=== PATIENT | female | born 1995 | race Caucasian/White ===

== ENCOUNTER 2016-05-14 12:57 | Emergency (ER) | payer BC ==
[2016-05-14 13:44] LABS: Hematocrit 35.8 % (37.0-47.0); Hemoglobin 10.8 gm/dL (12.5-16.0); Mean Cell Volume 88.8 fl (78-100); Mean Corpuscular Hemoglobin 26.8 pg (27-31); Mean Corpuscular Hgb Conc 30.2 g/dl (32-36); Mean Platelet Volume 11.3 fl (6.0-9.5); Platelet Count 473 K/mm3 (150-450); Red Blood Count 4.03 M/mm3 (4.2-5.4); Red Cell Distribution Width 17.2 % (11.5-14.0); White Blood Count 11.7 K/mm3 (4.0-10.5)
[2016-05-14 13:47] LABS: Total Cells Counted 100
[2016-05-14 13:56] LABS: Albumin * 2.9 gm/dl (3.4-5.0); Anion Gap 13.4 mmol/L (6.8-13.8); BUN/Creatinine Ratio 15.7 (9.0-21.6); Bilirubin, Total 0.5 mg/dL (0.0-1.1); Ca. Corrected For Albumin 9.3 mg/dL (8.4-10.2); Calcium * 8.7 mg/dL (7.9-10.9); Carbon Dioxide 26.9 mmol/L (24-32.6); Potassium 4.3 mmol/L (3.4-4.6); Total Protein 7.9 gm/dL (6.2-8.2)
[2016-05-14 14:07] LABS: Urine Bilirubin 1 mg/dl (NEGATIVE); Urine Blood 25 /ul (NEGATIVE); Urine Ketone 5 mg/dL (NEGATIVE); Urine Nitrite Negative (NEGATIVE); Urine Protein Negative (NEGATIVE); Urine Specific Gravity 1.025 SP.GR. (1.005-1.010); Urine Urobilinogen Normal (NORMAL); Urine pH 6.5 pH (5.0-7.0)
[2016-05-14] MEDS ORDERED: ONDANSETRON HCL/PF 2 MG/ML VIAL IV ONE (14:08)
[2016-05-14] MEDS ORDERED: HYDROmorphone HCL 1 MG/ML DISP.SYRIN IV ONE (14:08)
[2016-05-14] MEDS ORDERED: NORMAL SALINE 1,000 ML IV ONE (14:08)
[2016-05-14] MEDS ORDERED: PROMETHAZINE HCL 50 MG/ML AMPUL IM ONE ×2 (14:13→14:52)
[2016-05-14] MEDS ORDERED: HYDROmorphone HCL 1 MG/ML DISP.SYRIN IM ONE ×2 (14:13→16:04)
[2016-05-14 14:18] LABS: Band 3 % (0-2.0); Eosinophil 1 % (0-3); Lymphocyte 20 % (20-51); Monocyte 9 % (0-9); Neutrophil 67 % (42-75); Neutrophil # 7.8 K/mm3 (1.3-6.0)
[2016-05-14 14:20] LABS: Dohle Bodies 1+; Hypochromia 1+; Platelet Estimate Increased (NORMAL)
[2016-05-14 14:21] LABS: Urine Appearance Cloudy; Urine Color Dark Yellow
[2016-05-14 14:22] LABS: Urine Bacteria 3+; Urine Mucus Moderate - 2+; Urine RBC 0-5 /hpf (0-5); Urine WBC 0-5 /hpf (0-5)
[2016-05-14 14:27] LABS: Cocaine Ur Negative (NEGATIVE); Urine Barbiturate Negative (NEGATIVE); Urine Benzodiazepines Negative (NEGATIVE); Urine Opiates Negative (NEGATIVE); Urine PCP Negative (NEGATIVE); Urine THC Negative (NEGATIVE)
--- NOTE | 2016-05-14 14:42 | ERNOTE ---
Abdominal HPI - Narrative Date of Service: 05/14/16 - General Chief Complaint: Abdominal Pain Time Seen by Provider: 05/14/16 13:59 Source: patient, RN notes reviewed Exam Limitations: no limitations - Immun/Allergies/Home Medications Immunizatons: IMMUNIZATION HX Immunizations Up to Date Yes History of Influenza Vaccine Yes Hx Pneumococcal Vaccination Yes Allergies/Adverse Reactions: Allergies NSAIDS (Non-Steroidal Anti-Inflamma Allergy (Verified 05/14/16 13:10) Hives ibuprofen Adverse Reaction (Verified 05/14/16 13:10) Hives, vomiting ketorolac tromethamine [From Toradol] Adverse Reaction (Verified 05/14/16 13:10) Hives sumatriptan [From Imitrex] Adverse Reaction (Verified 05/14/16 13:10) Hives sumatriptan succinate [From Imitrex] Adverse Reaction (Verified 05/14/16 13:10) Hives tramadol Adverse Reaction (Verified 05/14/16 13:10) Hives vancomycin Adverse Reaction (Verified 05/14/16 13:10) Other Red jada syndrome Home Medications: HOME MEDICATIONS Albuterol Sulfate [Albuterol Sulfate Hfa] 1 puff IH Q4H PRN 05/30/13 [Last Taken 01/13/14] Ferrous Sulfate 325 mg PO BID 05/30/13 [Last Taken 07/21/14 09:00] Fluticasone Propionate [Flonase] 1 spray NS BID 05/30/13 [Last Taken 07/21/14 09 :00] Multivitamins [Multivitamin Arnie] 2 cap PO DAILY 05/30/13 [Last Taken 09:00] Albuterol Sulfate 2.5 mg IH QID PRN 06/22/13 [Last Taken 01/13/14] Gabapentin 600 mg PO TID 06/22/13 [Last Taken 07/21/14 09:00] Levetiracetam [Keppra] 1,500 mg PO BID 06/22/13 [Last Taken 07/21/14 09:00] Cholecalciferol (Vitamin D3) [Vitamin D3] 50,000 unit PO WE 08/10/13 [Last Taken 07/18/14] Dornase Delmar [Pulmozyme] 2.5 mg IH DAILY PRN 08/10/13 [Last Taken 07/21/14 09:00 ] Levothyroxine Sodium [Synthroid] 50 mcg PO DAILY 08/10/13 [Last Taken 07/21/14 09:00] Aztreonam Lysine [Cayston] 75 mg IH TID 03/01/14 [Last Taken Unknown] Colistin (Colistimethate Na) [Colistimethate] 3 ml IH BID 03/01/14 [Last Taken 07/21/14 09:00] Lipase/Protease/Amylase [Zenpep Dr 20,000 Units Capsule] 5 each PO AC 03/01/14 [ Last Taken Unknown] Lacosamide [Vimpat] 200 mg PO BID 07/21/14 [Last Taken 07/14/14 09:00] Azithromycin [Zithromax] 250 mg PO MOWEFR 07/23/14 [Last Taken Unknown] Sodium Chloride For Inhalation [Nebusal] 4 ml IH HS 07/23/14 [Last Taken Unknown ] Omeprazole [Prilosec] 40 mg PO DAILY 04/25/15 [Last Taken Unknown] Buspirone HCl 10 mg PO DAILY 02/09/16 [Last Taken Unknown] Dabigatran Etexilate Mesylate [Pradaxa] 150 mg PO BID 02/09/16 [Last Taken Unknown] Doxepin HCl [Sinequan] 10 mg PO BID 02/09/16 [Last Taken Unknown] Clonidine HCl [Clonidine HCl ER] 0.1 mg PO HS 02/24/16 [Last Taken Unknown] Bisacodyl [Dulcolax Suppository] 10 mg RC DAILY PRN #10 supp.rect 04/04/16 [ Last Taken Unknown] Zolpidem Tartrate 05/13/16 [Last Taken Unknown] Ondansetron [Zofran Odt] 8 mg PO Q8H PRN #12 tab 05/14/16 [Last Taken Unknown] - History of Present Illness Narrative: 20 y/o female brought to the ED by ambulance for abdominal pain and vomiting that began on 05/11/16. She denies any diarrhea. She was seen in the emergency department at [facility] last night. She reports being given IVF and told that she was constipated based on her xray. She was recently hospitalized at [facility] for issues r/t her cystic fibrosis. She denies any sick contacts. She reports having a fever as high as 104. She is afebrile now without any antipyretics. She reports feeling better and being able to sleep for about 2 hours after having IVF and meds last night. She reports that she began vomiting again shortly after and has continued to since. Date (Duration): 04/13/16 Prior Abdominal Problems: Present: similar symptoms Prior Treatment: Present: recently seen, treated by physician, currently on antibiotics Review of Systems - Review of Systems Constitutional: Present: recent illness, fever, chills, fatigue, malaise EYE: Present: no symptoms reported ENT: Present: no symptoms reported Respiratory: Present: cough. Absent: shortness of breath, wheezing Cardiology: Absent: palpitations, syncope Gastrointestinal/Abdominal: Present: nausea, vomiting, abdominal pain. Absent: diarrhea, constipation, eating less, drinking less Genitourinary: Absent: frequency, dysuria Musculoskeletal: Present: no symptoms reported Skin: Present: no symptoms reported Neurological: Absent: headache, dizziness/light-headedness Endocrine: Present: no symptoms reported Hematologic/Lymphatic: Present: no symptoms reported Psych: Present: no symptoms reported - Patient's Past Medical History Patient History - Medical: Anxiety, Hypothyroidism, Migraines, Seizures Patient History - Cardiac/Respiratory: Pneumonia, Other - Cystic fibrosis Patient History - Cancer: No Hx of Cancer Patient History - Surgical Procedures: Cholecystectomy, D & C, T & A, Other Patient History - Other: None LMP (females 10-50): 3 weeks - Family History Father Family History - Medical: Rheumatoid Arthritis, Other Family History - Cardiac/Respiratory: Other - Social History Living Situations: home Abuse History: No History of abuse Psych History: Psychiatric Hx Does anyone smoke in the home?: No Alcohol Use: occasionally Drug Use: none - Immunizations Immunizations Up to Date: Yes Hx Pneumococcal Vaccination: Yes History of Influenza Vaccine: Yes Physical Exam - Physical Exam General Appearance: Present: alert, mild distress, cachetic Neck: Present: normal inspection, nontender, supple Respiratory: Present: no respiratory distress, normal breath sounds, no accessory muscle use, lungs clear Cardiovascular/Chest: Present: no murmur, normal peripheral pulses, tachycardia Gastrointestinal/Abdominal: Present: normal bowel sounds, nondistended, soft, tenderness - RUQ. Absent: no organomegaly, mass Extremity Exam: Present: normal inspection, non-tender, no edema Neurological Exam: Present: alert, oriented, other - flat affect. Absent: normal mood/affect Skin Exam: Present: warm/dry, pallor ED Progress - Vital Signs Patient's Vital Signs:: I have reviewed the patient's vital signs. Vital Signs: Vital Signs 05/14/16 05/14/16 13:05 13:26 Temperature 36.9 C Pulse Rate 130 H Respiratory 17 Rate Blood Pressure 138/97 O2 Sat by Pulse 92 94 Oximetry - Progress/Reassessment Chief Complaint: Abdominal Pain Progress:: Improved Progress Note-Subjective: 05/14/16 16:13 Nausea improved after Dilaudid and Phenergan. Attempted to drink 7Up. Nausea and pain worsened. Dilaudid repeated - informed she cannot be given another dose. Zofran ODT also given. Chemistries normal despite patient reporting several days of vomiting. Bacteria present on UA but denies any urinary symptoms. Will defer antibiotic pending culture results. No vomiting noted while in department. Departure - Departure Clinical Impression: Vomiting Qualifiers: Vomiting type: unspecified Vomiting Intractability: non-intractable Nausea presence: with nausea Qualified Code(s): R11.2 - Nausea with vomiting, unspecified Abdominal pain Qualifiers: Abdominal location: right upper quadrant Qualified Code(s): R10.11 - Right upper quadrant pain Disposition: Home Follow Up Needed Condition: Stable Instructions: Viral Gastroenteritis, Adult, [id number] Prescriptions: Ondansetron [Zofran Odt] 8 mg PO Q8H PRN #12 tab PRN Reason: Nausea
[2016-05-14] MEDS ORDERED: HYDROmorphone HCL 1 MG/ML DISP.SYRIN ONE (14:52)
[2016-05-14] MEDS ORDERED: ONDANSETRON 4 MG TAB.RAPDIS PO ONE (16:04)
[2016-05-14 16:19] VITALS: BP 139/102
== END 2016-05-14 16:32 | disposition home or self-care (01) ==
LOC: ER 12:57
DX: R10.11 Right upper quadrant pain (principal); R11.2 Nausea with vomiting, unspecified
CPT/HCPCS: 36415; 80053; 81001; 82150; 83690; 84703; 85025; 87086; 96372; 99284; G0479

== ENCOUNTER 2016-05-15 09:50 | Emergency (ER) | payer BC ==
[2016-05-15] MEDS ORDERED: HYDROmorphone HCL 1 MG/ML DISP.SYRIN IV ONE (10:13)
[2016-05-15] MEDS ORDERED: DIATRIZOATE MEGLU/DIATRIZO SOD 30 ML BTL PO ONE (10:13)
[2016-05-15] MEDS ORDERED: PROMETHAZINE HCL 25 MG in DEXTROSE 5 % IN WATER 50 ML IV ONE ×4 (10:13→17:17)
--- NOTE | 2016-05-15 10:19 | ERNOTE ---
Abdominal HPI - General Chief Complaint: Chest Pain Time Seen by Provider: 05/15/16 09:53 Source: patient - Immun/Allergies/Home Medications Immunizatons: IMMUNIZATION HX Immunizations Up to Date Yes History of Influenza Vaccine Yes Hx Pneumococcal Vaccination Yes Allergies/Adverse Reactions: Allergies NSAIDS (Non-Steroidal Anti-Inflamma Allergy (Verified 05/14/16 13:10) Hives ibuprofen Adverse Reaction (Verified 05/14/16 13:10) Hives, vomiting ketorolac tromethamine [From Toradol] Adverse Reaction (Verified 05/14/16 13:10) Hives sumatriptan [From Imitrex] Adverse Reaction (Verified 05/14/16 13:10) Hives sumatriptan succinate [From Imitrex] Adverse Reaction (Verified 05/14/16 13:10) Hives tramadol Adverse Reaction (Verified 05/14/16 13:10) Hives vancomycin Adverse Reaction (Verified 05/14/16 13:10) Other Red jada syndrome Home Medications: HOME MEDICATIONS Albuterol Sulfate [Albuterol Sulfate Hfa] 1 puff IH Q4H PRN 05/30/13 [Last Taken 01/13/14] Ferrous Sulfate 325 mg PO BID 05/30/13 [Last Taken 07/21/14 09:00] Fluticasone Propionate [Flonase] 1 spray NS BID 05/30/13 [Last Taken 07/21/14 09 :00] Multivitamins [Multivitamin Arnie] 2 cap PO DAILY 05/30/13 [Last Taken 09:00] Albuterol Sulfate 2.5 mg IH QID PRN 06/22/13 [Last Taken 01/13/14] Gabapentin 600 mg PO TID 06/22/13 [Last Taken 07/21/14 09:00] Levetiracetam [Keppra] 1,500 mg PO BID 06/22/13 [Last Taken 07/21/14 09:00] Cholecalciferol (Vitamin D3) [Vitamin D3] 50,000 unit PO WE 08/10/13 [Last Taken 07/18/14] Dornase Delmar [Pulmozyme] 2.5 mg IH DAILY PRN 08/10/13 [Last Taken 07/21/14 09:00 ] Levothyroxine Sodium [Synthroid] 50 mcg PO DAILY 08/10/13 [Last Taken 07/21/14 09:00] Aztreonam Lysine [Cayston] 75 mg IH TID 03/01/14 [Last Taken Unknown] Colistin (Colistimethate Na) [Colistimethate] 3 ml IH BID 03/01/14 [Last Taken 07/21/14 09:00] Lipase/Protease/Amylase [Zenpep Dr 20,000 Units Capsule] 5 each PO AC 03/01/14 [ Last Taken Unknown] Lacosamide [Vimpat] 200 mg PO BID 07/21/14 [Last Taken 07/14/14 09:00] Azithromycin [Zithromax] 250 mg PO MOWEFR 07/23/14 [Last Taken Unknown] Sodium Chloride For Inhalation [Nebusal] 4 ml IH HS 07/23/14 [Last Taken Unknown ] Omeprazole [Prilosec] 40 mg PO DAILY 04/25/15 [Last Taken Unknown] Buspirone HCl 10 mg PO DAILY 02/09/16 [Last Taken Unknown] Dabigatran Etexilate Mesylate [Pradaxa] 150 mg PO BID 02/09/16 [Last Taken Unknown] Doxepin HCl [Sinequan] 10 mg PO BID 02/09/16 [Last Taken Unknown] Clonidine HCl [Clonidine HCl ER] 0.1 mg PO HS 02/24/16 [Last Taken Unknown] Bisacodyl [Dulcolax Suppository] 10 mg RC DAILY PRN #10 supp.rect 04/04/16 [ Last Taken Unknown] Zolpidem Tartrate 05/13/16 [Last Taken Unknown] Ondansetron [Zofran Odt] 8 mg PO Q8H PRN #12 tab 05/14/16 [Last Taken Unknown] - History of Present Illness Narrative: Patient has a history of cystic fibrosis with frequent hospital admission last in April for over two weeks at the [facility] for IV antibiotics as well as a bronchoscopy. She received dilaudid while in the hospital but not at home. She has been seen in the ER for chronic pain issues including abdominal pain, started to have abdominal pain (again) five days ago, seen in [facility] ER two days ago (diagnosis constipation), seen in our ER yesterday,given dilaudid and phenergan with brief relieve. She rates the pain as severe, has not kept anything down for days, no diarrhea Date (Duration): 05/11/16 Timing: constant, getting worse Quality: severe Modifying Factors - (Worsens): Present: coughing, movement, vomiting Prior Abdominal Problems: Present: similar symptoms Prior Treatment: Absent: recently seen, currently on antibiotics Review of Systems - Review of Systems Constitutional: Present: recent illness. Absent: fever, chills ENT: Absent: sore throat Respiratory: Present: shortness of breath - baseline, cough - baseline Cardiology: Present: chest pain Gastrointestinal/Abdominal: Present: See HPI, nausea, vomiting, abdominal pain. Absent: diarrhea Genitourinary: Present: no symptoms reported Skin: Absent: rash Neurological: Present: headache - mild - Patient's Past Medical History Patient History - Medical: Anxiety, Hypothyroidism, Migraines, Seizures Patient History - Cardiac/Respiratory: Pneumonia, Other - Cystic fibrosis Patient History - Cancer: No Hx of Cancer Patient History - Surgical Procedures: Cholecystectomy, D & C, T & A, Other Patient History - Other: None LMP (Calendar): 06/25/15 - Family History Father Family History - Medical: Rheumatoid Arthritis, Other Family History - Cardiac/Respiratory: Other - Social History Living Situations: spouse Abuse History: No History of abuse Psych History: Psychiatric Hx Does anyone smoke in the home?: No Alcohol Use: occasionally Drug Use: none - Immunizations Immunizations Up to Date: Yes Hx Pneumococcal Vaccination: Yes History of Influenza Vaccine: Yes Physical Exam - Physical Exam General Appearance: Present: wd/wn, alert, mild distress Ears, Nose, Throat: Present: normal pharynx Respiratory: Present: no respiratory distress, normal breath sounds, lungs clear Cardiovascular/Chest: Present: no murmur, tachycardia Gastrointestinal/Abdominal: Present: normal bowel sounds, nondistended, soft, tenderness - mainly on right side of abdomen, Obturator sign, Psoas sign Extremity Exam: Present: no edema Neurological Exam: Present: alert, oriented, normal mood/affect Skin Exam: Present: normal color, warm/dry ED Progress - Results and Orders Patient's Lab Results:: I have reviewed the patient's lab results. - Vital Signs Patient's Vital Signs:: I have reviewed the patient's vital signs. Vital Signs: Vital Signs 05/15/16 09:54 Temperature 36.5 C Pulse Rate 116 H Respiratory 14 Rate Blood Pressure 148/101 O2 Sat by Pulse 93 Oximetry - CT/Ultrasound CT/Ultrasound Narrative: CT abdomen /pelvis: moderate amount of stool in right colon, no acute findings, normal appendix - Progress/Reassessment Chief Complaint: Chest Pain Progress Note-Subjective: 05/15/16 11:55 tolerating po contrast, requesting more pain medication 05/15/16 14:[address] results, patient is requesting more pain medication no vomiting here, finished po contrast without problems 05/15/16 14:27 call to [facility] 05/15/16 14:37 discussed with Dean Hernández (cystic fibrosis services), right sided constipation typical for CF, discussed slightly elevated WBC and bands bed will be available shortly, will call with transfer time, accepting doctor Dr Dubose no more dilaudid! explained plan to patient, is requesting more phenergan or benadryl, discussed appropriate dosing interval Departure - Departure Clinical Impression: Constipation by delayed colonic transit Abdominal pain Qualifiers: Abdominal location: unspecified location Qualified Code(s): R10.9 - Unspecified abdominal pain Chronic pain Qualifiers: Chronic pain type: other chronic pain Qualified Code(s): G89.29 - Other chronic pain Disposition: [facility] Condition: Fair
[2016-05-15 10:36] LABS: Hematocrit 32.8 % (37.0-47.0); Hemoglobin 10.1 gm/dL (12.5-16.0); Mean Corpuscular Hemoglobin 26.8 pg (27-31); Mean Corpuscular Hgb Conc 30.8 g/dl (32-36); Mean Platelet Volume 9.8 fl (6.0-9.5); Platelet Count 760 K/mm3 (150-450); Red Blood Count 3.77 M/mm3 (4.2-5.4); Red Cell Distribution Width 16.8 % (11.5-14.0); White Blood Count 12.1 K/mm3 (4.0-10.5)
[2016-05-15] MEDS ORDERED: HYDROmorphone HCL 1 MG/ML DISP.SYRIN IM ONE (10:36)
[2016-05-15] MEDS ORDERED: PROMETHAZINE HCL 50 MG/ML AMPUL IM ONE ×2 (10:37→10:38)
[2016-05-15 10:38] LABS: Total Cells Counted 100
[2016-05-15] MEDS ORDERED: HYDROmorphone HCL 1 MG/ML DISP.SYRIN ONE ×2 (10:38→11:55)
[2016-05-15] MEDS ORDERED: DIATRIZOATE MEGLU/DIATRIZO SOD 30 ML BTL ONE (10:48)
[2016-05-15 10:51] LABS: Atypical (Reactive) Lymph 1 % (0-2); Band 7 % (0-2.0); Eosinophil 3 % (0-3); Lymphocyte 19 % (20-51); Monocyte 7 % (0-9); Neutrophil 63 % (42-75); Neutrophil # 7.6 K/mm3 (1.3-6.0); Platelet Estimate Increased (NORMAL)
[2016-05-15 10:53] LABS: Toxic Granulation 2+
[2016-05-15 10:57] LABS: Giant Platelets Trace; Hypochromia 1+
[2016-05-15] MEDS ORDERED: diphenhydrAMINE HCL 50 MG/ML VIAL IV ONE (12:37)
[2016-05-15] MEDS ORDERED: diphenhydrAMINE HCL 50 MG/ML VIAL ONE (13:06)
[2016-05-15] MEDS ORDERED: NORMAL SALINE 1,000 ML IV ONE (15:48)
[2016-05-15 16:42] VITALS: BP 117/76
== END 2016-05-15 18:03 | disposition short-term general hospital (02) ==
LOC: ER 09:50
DX: K59.01 Slow transit constipation (principal); G89.29 Other chronic pain; E84.9 Cystic fibrosis, unspecified

== ENCOUNTER 2016-05-29 03:13 | Emergency (ER) | payer BC ==
[2016-05-29] MEDS: ONDANSETRON 4 MG TAB.RAPDIS PO ONE (03:47)
[2016-05-29] MEDS ORDERED: ONDANSETRON 4 MG TAB.RAPDIS ONE (03:47)
[2016-05-29] MEDS ORDERED: PROMETHAZINE HCL 25 MG/ML AMPUL ONE (04:00)
[2016-05-29] MEDS: PROMETHAZINE HCL 25 MG/ML AMPUL IM ONE (04:03)
--- NOTE | 2016-05-29 04:07 | ERNOTE ---
Dyspnea - General Presenting Symptoms: shortness of breath Time Seen by Provider: 05/29/16 03:30 Source: patient Exam Limitations: no limitations - Immun/Allergies/Home Medications Immunizations: IMMUNIZATION HX Immunizations Up to Date Yes History of Influenza Vaccine Yes Hx Pneumococcal Vaccination Yes Allergies/Adverse Reactions: Allergies NSAIDS (Non-Steroidal Anti-Inflamma Allergy (Verified 05/14/16 13:10) Hives ibuprofen Adverse Reaction (Verified 05/14/16 13:10) Hives, vomiting ketorolac tromethamine [From Toradol] Adverse Reaction (Verified 05/14/16 13:10) Hives sumatriptan [From Imitrex] Adverse Reaction (Verified 05/14/16 13:10) Hives sumatriptan succinate [From Imitrex] Adverse Reaction (Verified 05/14/16 13:10) Hives tramadol Adverse Reaction (Verified 05/14/16 13:10) Hives vancomycin Adverse Reaction (Verified 05/14/16 13:10) Other Red jada syndrome Home Medications: HOME MEDICATIONS Albuterol Sulfate [Albuterol Sulfate Hfa] 1 puff IH Q4H PRN 05/30/13 [Last Taken 01/13/14] Ferrous Sulfate 325 mg PO BID 05/30/13 [Last Taken 07/21/14 09:00] Fluticasone Propionate [Flonase] 1 spray NS BID 05/30/13 [Last Taken 07/21/14 09 :00] Multivitamins [Multivitamin Anrie] 2 cap PO DAILY 05/30/13 [Last Taken 09:00] Albuterol Sulfate 2.5 mg IH QID PRN 06/22/13 [Last Taken 01/13/14] Gabapentin 600 mg PO TID 06/22/13 [Last Taken 07/21/14 09:00] Levetiracetam [Keppra] 1,500 mg PO BID 06/22/13 [Last Taken 07/21/14 09:00] Cholecalciferol (Vitamin D3) [Vitamin D3] 50,000 unit PO WE 08/10/13 [Last Taken 07/18/14] Dornase Demlar [Pulmozyme] 2.5 mg IH DAILY PRN 08/10/13 [Last Taken 07/21/14 09:00 ] Levothyroxine Sodium [Synthroid] 50 mcg PO DAILY 08/10/13 [Last Taken 07/21/14 09:00] Aztreonam Lysine [Cayston] 75 mg IH TID 03/01/14 [Last Taken Unknown] Colistin (Colistimethate Na) [Colistimethate] 3 ml IH BID 03/01/14 [Last Taken 07/21/14 09:00] Lipase/Protease/Amylase [Zenpep Dr 20,000 Units Capsule] 5 each PO AC 03/01/14 [ Last Taken Unknown] Lacosamide [Vimpat] 200 mg PO BID 07/21/14 [Last Taken 07/14/14 09:00] Azithromycin [Zithromax] 250 mg PO MOWEFR 07/23/14 [Last Taken Unknown] Sodium Chloride For Inhalation [Nebusal] 4 ml IH HS 07/23/14 [Last Taken Unknown ] Omeprazole [Prilosec] 40 mg PO DAILY 04/25/15 [Last Taken Unknown] Buspirone HCl 10 mg PO DAILY 02/09/16 [Last Taken Unknown] Dabigatran Etexilate Mesylate [Pradaxa] 150 mg PO BID 02/09/16 [Last Taken Unknown] Doxepin HCl [Sinequan] 10 mg PO BID 02/09/16 [Last Taken Unknown] Clonidine HCl [Clonidine HCl ER] 0.1 mg PO HS 02/24/16 [Last Taken Unknown] Bisacodyl [Dulcolax Suppository] 10 mg RC DAILY PRN #10 supp.rect 04/04/16 [ Last Taken Unknown] Zolpidem Tartrate 05/13/16 [Last Taken Unknown] Ondansetron [Zofran Odt] 8 mg PO Q8H PRN #12 tab 05/14/16 [Last Taken Unknown] - History of Present Illness Narrative: Pt has people staying with her and got upset this morning and became short of breath. Her called EMS and she told them to bring her here instead of the closest facility. Severity: moderate Initiating event: Reports: exposure to smoke - and stressful situation Frequency of episodes: Reports: frequent episodes Modifying Factors (Worsens): Reports: activity Associated Symptoms-Dyspnea: Reports: chest pain/discomfort, cough Prior Treatment: Reports: recently seen, recently hospitalized - at the [facility], states she didn't feel as good going home this time as she usually does, currently on antibiotics - prophylactic azithromycin Review of Systems - Review of Systems Constitutional: Present: See HPI EYE: Present: no symptoms reported ENT: Present: no symptoms reported Respiratory: Present: shortness of breath, cough Cardiology: Present: chest pain Gastrointestinal/Abdominal: Present: nausea, vomiting Genitourinary: Present: no symptoms reported Musculoskeletal: Present: no symptoms reported Skin: Present: no symptoms reported Neurological: Present: no symptoms reported Endocrine: Present: no symptoms reported Hematologic/Lymphatic: Present: no symptoms reported Psych: Present: no symptoms reported - Patient's Past Medical History Patient History - Medical: Anxiety, Hypothyroidism, Migraines, Seizures Patient History - Cardiac/Respiratory: Pneumonia, Other - cystic fibrosis Patient History - Cancer: No Hx of Cancer Patient History - Surgical Procedures: Cholecystectomy, D & C, T & A, Other Patient History - Other: None LMP (females 10-50): 3 weeks LMP (Calendar): 06/25/15 - Family History Father Family History - Medical: Rheumatoid Arthritis, Other Family History - Cardiac/Respiratory: Other - Social History Living Situations: home Abuse History: No History of abuse Psych History: Psychiatric Hx Does anyone smoke in the home?: No Smoking Status: Never smoker Alcohol Use: occasionally Drug Use: none - Immunizations Immunizations Up to Date: Yes Hx Pneumococcal Vaccination: Yes History of Influenza Vaccine: Yes Physical Exam - Physical Exam General Appearance: Present: wd/wn, alert, no apparent distress Eye Exam: Normal inspection: bilateral Ears, Nose, Throat: Present: normal ENT inspection, hearing grossly normal Neck: Present: normal inspection, nontender Respiratory: Present: no respiratory distress, normal breath sounds, no accessory muscle use, chest nontender, lungs clear Cardiovascular/Chest: Present: no murmur, normal peripheral pulses, tachycardia Gastrointestinal/Abdominal: Present: normal bowel sounds Back Exam: Present: normal inspection, normal range of motion Extremity Exam: Present: normal inspection, no edema Neurological Exam: Present: alert, oriented, normal mood/affect, no motor/ sensory deficits Skin Exam: Present: normal color, warm/dry Lymphatic Exam: Present: no adenopathy ED Progress - Results and Orders Patient's Lab Results:: I have reviewed the patient's lab results. Results and Orders: Laboratory Tests 05/29/16 05/29/16 04:05 04:05 WBC 10.1 Hgb 9.8 L Hct 31.2 L Plt Count 424 Sodium 143 H Potassium 4.4 Chloride 105 Carbon Dioxide 28.3 Anion Gap 14.1 H BUN 12 Creatinine 0.84 Est GFR (Non-Af Amer) 90 Random Glucose 114 H Calcium 9.6 Total Bilirubin 1.0 AST 76 H ALT 89 H Alkaline Phosphatase 220 H Total Protein 7.6 Albumin 2.6 L - Vital Signs Patient's Vital Signs:: I have reviewed the patient's vital signs. Vital Signs: Vital Signs 05/29/16 05/29/16 03:15 03:35 Temperature 35.9 C L Pulse Rate 118 H 112 H Respiratory 22 H Rate Blood Pressure 125/97 O2 Sat by Pulse 98 Oximetry - EKG EKG read: Interp. by me EKG Comments: Normal Sinus Rhythm - Progress/Reassessment Chief Complaint: Dyspnea Progress:: Unchanged Progress Note-Subjective: 05/29/16 04:36 Pt states she his having pain pointing to the middle of her chest. I explained that her symptoms suggest anxiety and I would treat that but that with her vomiting twice since she arrived I would not add to her nausea by adding narcotic pain medications. She suggested I call [facility] ([facility]) to ask what they usually do with her. I explained I do not see any respiratory signs and that her SaO2 has been perfect since she arrived, her lungs are completely clear to auscultation so I cannot see why I would call the [facility]. She continued to argue in different ways why I should give her IV Dilaudid. I told her I would simply treat by what I see as the diagnosis. Pt states she will just call her doctor at the [facility] in the morning. Departure Clinical Impression: Anxiety - Departure Disposition: Home Follow Up Needed Condition: Good Instructions: Panic Attacks, [id number] Additional Instructions: Avoid stressful situations. Talk to your regular doctor about having an anxiety medication to use as needed in these kind of situations.
[2016-05-29 04:15] LABS: Hematocrit 31.2 % (37.0-47.0); Hemoglobin 9.8 gm/dL (12.5-16.0); Mean Cell Volume 85.2 fl (78-100); Mean Corpuscular Hemoglobin 26.8 pg (27-31); Mean Corpuscular Hgb Conc 31.4 g/dl (32-36); Mean Platelet Volume 10.4 fl (6.0-9.5); Neutrophil # 6.7 K/mm3 (1.3-6.0); Neutrophil % 66.8 % (42-75.0); Platelet Count 424 K/mm3 (150-450); Red Blood Count 3.66 M/mm3 (4.2-5.4); White Blood Count 10.1 K/mm3 (4.0-10.5)
[2016-05-29 04:29] LABS: Albumin * 2.6 gm/dl (3.4-5.0); Anion Gap 14.1 mmol/L (6.8-13.8); BUN/Creatinine Ratio 14.3 (9.0-21.6); Ca. Corrected For Albumin 10.4 mg/dL (8.4-10.2); Calcium * 9.6 mg/dL (7.9-10.9); Carbon Dioxide 28.3 mmol/L (24-32.6); Potassium 4.4 mmol/L (3.4-4.6); Total Protein 7.6 gm/dL (6.2-8.2)
[2016-05-29] MEDS ORDERED: LORazepam 2 MG/ML DISP.SYRIN ONE (04:48)
[2016-05-29] MEDS: LORazepam 2 MG/ML DISP.SYRIN IM ONE (04:52)
--- OUTSIDE RECORDS SUMMARY | 2016-05-29 05:27 | XMS REPORT | Continuity of Care Document ---
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 individual orders. RESPIRATORY CULTURE (05/18/2016 12:43 AM)Only the most recent of2 resultswithin the time period is included. Component Value Range Respiratory Culture Many Staphylococcus aureus(A)Comment: D zone test for inducible clindamycin resistance was performed (Positive). Oxacillin-resistant staphylococci are resistant to all currently available B- lactam antibiotics with the exception of newer cephalosporins with anti-MRSA activity. Rifampin should not be used alone for antimicrobial therapy Respiratory Culture Rare Achromobacter xylosoxidans(A)Comment: Respiratory Culture Many Staphylococcus aureus #2(A)Comment: D zone test for inducible clindamycin resistance was performed (Positive). Oxacillin-resistant staphylococci are resistant to all currently available B- lactam antibiotics with the exception of newer cephalosporins with anti-MRSA activity. Rifampin should not be used alone for antimicrobial therapy Respiratory Culture Rare Naila glabrata(A) Specimen Culture - Sputum, chronic lung patient Narrative Identification performed by MALDI-TOF mass spectrometry (MS).The performance characteristics of MALDI-TOF MS were determined by the [facility].It has not been cleared orApproved by the FDA. The FDA has determined that such clearance or approval is not necessary.This test is for clinical purposes. It should not be regarded as investigational or for research.The laboratory is certified under the Clinical Laboratory Improvement Amendments of 1988 (CLIA) as qualified to perform high complexity clinical laboratory testing. Organism Antibiotic Method Susceptibility Staphylococcus aureus CLINDAMYCIN Resistant Staphylococcus aureus DOXYCYCLINE 1: Susceptible Staphylococcus aureus ERYTHROMYCIN >=8: Resistant Staphylococcus aureus GENTAMICIN <=0.5: Susceptible Staphylococcus aureus LINEZOLID 2: Susceptible Staphylococcus aureus OXACILLIN >=4: Resistant Staphylococcus aureus RIFAMPIN <=0.5: Susceptible Staphylococcus aureus TETRACYCLINE <=1: Susceptible Staphylococcus aureus TRIMETHOPRIM/SULFA <=0.5: Susceptible Staphylococcus aureus VANCOMYCIN 1: Susceptible Achromobacter xylosoxidans AMIKACIN 64: Resistant Achromobacter xylosoxidans AZTREONAM >32: Resistant Achromobacter xylosoxidans CEFEPIME 8: Susceptible Achromobacter xylosoxidans CEFTAZIDIME 4: Susceptible Achromobacter xylosoxidans CIPROFLOXACIN 1: Susceptible Achromobacter xylosoxidans GENTAMICIN >16: Resistant Achromobacter xylosoxidans MEROPENEM <=1: Susceptible Achromobacter xylosoxidans PIPERACILLIN/TAZOBACTAM <=16: Susceptible Achromobacter xylosoxidans TOBRAMYCIN >8: Resistant Achromobacter xylosoxidans TRIMETHOPRIM/SULFA <=0.5: Susceptible Staphylococcus aureus #2 CLINDAMYCIN Resistant Staphylococcus aureus #2 DOXYCYCLINE 1: Susceptible Staphylococcus aureus #2 ERYTHROMYCIN >=8: Resistant Staphylococcus aureus #2 GENTAMICIN <=0.5: Susceptible Staphylococcus aureus #2 LINEZOLID 2: Susceptible Staphylococcus aureus #2 OXACILLIN >=4: Resistant Staphylococcus aureus #2 RIFAMPIN <=0.5: Susceptible Staphylococcus aureus #2 TETRACYCLINE <=1: Susceptible Staphylococcus aureus #2 TRIMETHOPRIM/SULFA <=0.5: Susceptible Staphylococcus aureus #2 VANCOMYCIN <=0.5: Susceptible RESPIRATORY VIRUS PCR (05/16/2016 2:18 AM)Only the most recent of2 resultswithin the time period is included. Component Value Range Adenovirus Not Detected Not Detected Human [place]-Pneumovirus Not Detected Not Detected Influenza A Not Detected Not Detected Influenza B Not Detected Not detected H1N1 Influenza Not Detected Not Detected Parainfluenza 1 Virus Not Detected Not Detected Parainfluenza 2 Virus Not Detected Not Detected Parainfluenza 3 Virus Not Detected Not detected RSV A Not Detected Not Detected RSV B Not Detected Not Detected Specimen Other - Nasopharyngeal swab Narrative Test Methodology:PCR amplification The performance characteristics of this test were determined by the [facility].It has not been cleared or approved by the U.S. Food and DrugAdministration (FDA). The FDA has determined that such clearance or approval is not necessary.This test is for clinical purposes.It should not be regarded as investigational or for research. The laboratory is certified under the Clinical Laboratory Improvement Amendments of 1988 (CLIA) as qualified to perform high complexity clinical laboratory testing. BLOOD CELL MORPHOLOGY (05/16/2016 2:17 AM) Component Value Range Polychromasia 1+ Basophilic Stippling Present Toxic Granulation Present Vacuolated Neutrophils Present Large Platelet Present Specimen Whole Blood VENOUS BLOOD GAS (CRITICAL CARE LABORATORY) (05/16/2016 2:17 AM)Only the most recent of3 resultswithin the time period is included. Component Value Range pH, Venous 7.41 7.33-7.43 pCO2, Venous 46 37-50 torr pO2, Venous 36(L) 37-47 torr Base Excess, Venous 5(H) -2-2 mEq/L Bicarbonate, Venous 29(H) 22-26 mEq/L Total CO2, Venous 31 24-32 mEq/L Temperature, Venous 37.0 Degrees C Specimen Blood PT/INR (PROTHROMBIN TIME/INR) VENOUS (05/16/2016 2:17 AM)Only the most recent of2 resultswithin the time period is included. Component Value Range PT (Prothrombin Time) 15(H) 9-12 secs INR 1.5 <4.0 Specimen Blood LACTIC ACID, WHOLE BLOOD (CRITICAL CARE LABORATORY) (05/16/2016 2:17 AM) Component Value Range Lactic Acid, Whole Blood 1.0Comment: 0.5-2.0 mEq/L Glycolate, the principle toxic metabolite of ethylene glycol, can cause artifactual elevation of measured lactate. Specimen Blood COMPREHENSIVE METABOLIC PANEL (CMP) (05/16/2016 2:17 AM)Only the most recent of2 resultswithin the time period is included. Component Value Range Sodium 140 135-145 mEq/L Potassium 3.2(L) 3.5-5.0 mEq/L Chloride 102 95-107 mEq/L CO2 25 22-29 mEq/L Anion Gap 13 8-18 mEq/L BUN 9(L) 10-20 mg/dL Creatinine 0.6Comment: 0.5-1.0 mg/dL Creatinine switched to enzymatic method on 08/19/2010.GFR equation switched to IDMS-traceable MDRD equation on 08/19/2010. Calculated GFR values are not valid in clinical settings where serum creatinine is changing. Glucose 150(H)Comment: 65-99 mg/dL The Expert Committee on the Diagnosis and Classification of Diabetes has defined impaired fasting glucose as greater than or equal to 100 mg/dL but less than 126 mg/dL.(Diabetes Care 28 (Suppl 1)S41,2005) Calcium 7.8(L) 8.5-10.5 mg/dL Total Protein 6.2 6.0-8.0 g/dL Albumin 2.6(L) 3.4-4.8 g/dL AST 38(H)Comment: 0-32 U/L Adult reference ranges updated on 03/07/13 at 830am ALP 142(H) 35-104 U/L Bilirubin Total 0.5 <=1.2 mg/dL ALT 23Comment: 0-33 U/L The upper limit of normal for alanine aminotransferase (ALT) reference ranges for adults is controversial with some authorities recommending limit as low as 30 U/L for males and 19 U/L for females. Th ere is increased incidence of subclinical liver disease (e.g., early steatohepatitis) in patients with ALT values in the range of 31-41 U/L for males and 20-33 U/L for females. ALT values should alway s be interpreted in conjunction with clinical history, physical examination findings, and, if applicable, data from other diagnostic tests. Calculated GFR >90 >60 mL/min/1.73 m2 Specimen Blood ECG - EKG 12 LEAD (05/15/2016 9:09 PM)Only the most recent of2 resultswithin the time period is included. Component Value Range ECG SEVERITY - OTHERWISE NORMAL ECG - VENT. RATE 116 bpm RR 517 ms P-R INTERVAL 120 ms QRSD INTERVAL 70 ms QT INTERVAL 316 ms QTC INTERVAL 439 ms P AXIS 56 degrees QRS AXIS 80 degrees T WAVE AXIS 24 degrees REPORT SINUS TACHYCARDIA Interpreting Physician: Pavel Staley MD VITAMIN A (05/01/2016 6:53 AM) Component Value Range Vitamin A (Retinol) 0.31 0.30-1.20 mg/L Vitamin A (Retinyl Palmitate) <0.02 0.00-0.10 mg/L Vitamin A Interpretation NormalComment: Test developed and characteristics determined by [facility]. See Compliance Statement B: [facility] Performed by [facility], [address] [place] [id number] [email or web address], Juliano Odell MD, Lab. Director Specimen Blood Narrative Source: BLOOD Client Accession number: [id number] FOLATE (05/01/2016 6:53 AM) Component Value Range Folate >20.0 >=4.1 ng/mL Specimen Blood Narrative Normal>4.1ng/mL Indeterminant 2.2 - 4.1 ng/mL Deficient <2.2ng/mL All enriched grains have been fortified with folic acid in the [place] since 1997 and therefore the prevalence of folate deficiency is low (1%). Testing for folate deficiency is strongly discouraged unless profound malnutrition is suspected and other causes of anemia have been excluded. VITAMIN E, SERUM (05/01/2016 6:53 AM) Component Value Range Vitamin E (Alpha-Tocopherol) 8.7Comment: 5.5-18.0 mg/L Test developed and characteristics determined by [facility]. See Compliance Statement B: [facility] Vitamin E (Gamma-Tocopherol) 1.7Comment: 0.0-6.0 mg/L Performed by [facility], [address] [place] [id number] [email or web address], Juliano Odell MD, Lab. Director Specimen Blood Narrative Source: BLOOD Client Accession number: [id number] VITAMIN D, 25-HYDROXY (05/01/2016 6:53 AM) Component Value Range Vitamin D, 25-OH 20Comment: 20-80 ng/mL This assay accurately quantifies the sum of 25-hydroxyvitamin D3 and 25- hydroxyvitamin D2. Endocrine Society, [place] of Medicine (IOM), and World Health Organization (WHO) guidelines designate 25-h ydroxyvitamin D plasma concentrations below 20 ng/mL as deficient, based on increased frequency of adverse outcomes (e.g., osteoporotic fractures). 25-Hydroxyvitamin D reference ranges are a controversial topic, with some authorities suggesting optimal concentrations should be 30 ng/mL or higher based on correlations of 25-hydroxyvitamin D plasma concentrations with physiological parameters such as parathyroid hormone or calcium concentrations. However, optimal 25-hydroxyvitamin D concentrations greater than 20 ng/mL may be considered for specific disease conditions. Vitamin D toxicity is uncommon but may be seen at 25-hydroxyvitamin D concentrations greater than 150 ng/mL. Specimen Blood MAGNESIUM (05/01/2016 6:53 AM) Component Value Range Magnesium 1.6 1.5-2.9 mg/dL Specimen Blood PLATELET COUNT (05/01/2016 6:53 AM)Only the most recent of4 resultswithin the time period is included. Component Value Range Platelet Count 126(L) 150-400 K/MM3 Specimen Whole Blood POTASSIUM (04/30/2016 5:01 AM)Only the most recent of2 resultswithin the time period is included. Component Value Range Potassium 4.8 3.5-5.0 mEq/L Specimen Blood WHITE BLOOD CELL (WBC) COUNT (04/30/2016 5:01 AM)Only the most recent of2 resultswithin the time period is included. Component Value Range WBC Count 6.9 3.7-10.5 K/MM3 Nucleated RBC 0 /[address] Blood [address] CHEST WO CONTRAST ([id number]) (04/25/2016 4:44 AM) Impressions Impression: 1. Patchy areas of consolidation in the bilateral lungs appear somewhat improved compared to 01/07/2016. Again remains concerning for infection in the setting of cystic fibrosis. 2. Grossly stable mediastinal adenopathy 3. Stable changes of cystic fibrosis. 4. Fatty infiltration of the liver. This final report is in agreement with the critical and emergent preliminary findings reported by the ceo and president healthcare risk control consultant. Narrative Procedure: CT CHEST WO CONTRAST ([id number]) Clinical Indication:Cystic fibrosis Technique: Chest CT without intravenous contrast. Comparison: CT chest 01/07/2016 Findings: Supraclavicular, axillary, mediastinal, hilar: Prominent number of mediastinal nodes. With level 2 node measuring 1 cm, level 4R node measuring 11 mm and the other prominent mediastinal nodes that are difficult to measure on this noncontrast exam. Size and number of mediastinal nodes is similar to 01/07/2016. Cardiovascular: Cardiac size is normal. No pericardial effusions. No coronary artery calcifications. Abdomen: Fatty infiltration of liver. Pancreas is fatty replaced. Left greater than right bilateral nonobstructing renal stones are demonstrated. Lungs, airways, pleura: Stable central bronchiectasis with areas of mucous plugging and air trapping. The right upper lobe again demonstrates areas of abnormally peribronchial consolidation with surrounding groundglass opacities. Which are overall similar compared to the prior exam. Nodular opacities in the superior segment of the left lower lobe are decreased in prominence compared to the prior exam. Peribronchial consolidations and groundglass opacities in the left upper lobe are grossly stable. Chest wall, musculoskeletal: Unremarkable. Lines and tubes: Right-sided Uiirez-s-Layl in stable position. Procedure Note Azeem, Incoming Imaging Results - Sat Apr 25, 2016 10:21 AM EXPRESS CLERK Procedure: CT CHEST WO CONTRAST ([id number]) Clinical Indication: Cystic fibrosis Technique: Chest CT without intravenous contrast. Comparison: CT chest 01/07/2016 Findings: Supraclavicular, axillary, mediastinal, hilar: Prominent number of mediastinal nodes. With level 2 node measuring 1 cm, level 4R node measuring 11 mm and the other prominent mediastinal nodes that are difficult to measure on this noncontrast exam. Size and number of mediastinal nodes is similar to 01/07/2016. Cardiovascular: Cardiac size is normal. No pericardial effusions. No coronary artery calcifications. Abdomen: Fatty infiltration of liver. Pancreas is fatty replaced. Left greater than right bilateral nonobstructing renal stones are demonstrated. Lungs, airways, pleura: Stable central bronchiectasis with areas of mucous plugging and air trapping. The right upper lobe again demonstrates areas of abnormally peribronchial consolidation with surrounding groundglass opacities. Which are overall similar compared to the prior exam. Nodular opacities in the superior segment of the left lower lobe are decreased in prominence compared to the prior exam. Peribronchial consolidations and groundglass opacities in the left upper lobe are grossly stable. Chest wall, musculoskeletal: Unremarkable. Lines and tubes: Right-sided Zrzkxz-g-Parz in stable position. IMPRESSION Impression: 1. Patchy areas of consolidation in the bilateral lungs appear somewhat improved compared to 01/07/2016. Again remains concerning for infection in the setting of cystic fibrosis. 2. Grossly stable mediastinal adenopathy 3. Stable changes of cystic fibrosis. 4. Fatty infiltration of the liver. This final report is in agreement with the critical and emergent preliminary findings reported by the ceo and president healthcare risk control consultant. CHEST- PA& LATERAL (04/23/2016 4:53 PM)Only the most recent of3 resultswithin the time period is included. Impressions Impression: 1. Interval decreased left upper lobe infiltrate. 2. Slightly increased consolidation in right upper lobe with associated volume loss, suggesting a combination of infiltrate and atelectasis. 3. No new consolidation or mucous plugging. Narrative Procedure: CHEST- PA & LATERAL Clinical Indication: Cystic fibrosis, right upper lobe collapse. Technique: PA and lateral chest radiograph Comparison: 04/14/2016 Findings: Redemonstration of airspace opacity in the left upper lobe which most likely represents combination of bronchiectasis and peribronchial infiltrate, improved since prior exam. Right upper lobe consolidation is again seen slightly increased since prior exam with old up right hilum suggesting volume loss. Both lower lungs are clear. No pleural effusion or pneumothorax. Heart size and pulmonary vasculature are unremarkable. Right-sided Reucjx-i-Ncll is in stable position with its tip at the cavoatrial junction. Procedure Note Azeem, Incoming Imaging Results - Radha Apr 23, 2016 6:06 PM EXPRESS CLERK Procedure: CHEST- PA & LATERAL Clinical Indication: Cystic fibrosis, right upper lobe collapse. Technique: PA and lateral chest radiograph Comparison: 04/14/2016 Findings: Redemonstration of airspace opacity in the left upper lobe which most likely represents combination of bronchiectasis and peribronchial infiltrate, improved since prior exam. Right upper lobe consolidation is again seen slightly increased since prior exam with old up right hilum suggesting volume loss. Both lower lungs are clear. No pleural effusion or pneumothorax. Heart size and pulmonary vasculature are unremarkable. Right-sided Ovukqc-k-Tvhh is in stable position with its tip at the cavoatrial junction. IMPRESSION Impression: 1. Interval decreased left upper lobe infiltrate. 2. Slightly increased consolidation in right upper lobe with associated volume loss, suggesting a combination of infiltrate and atelectasis. 3. No new consolidation or mucous plugging. THYROID STIMULATING HORMONE (04/23/2016 5:11 AM) Component Value Range TSH 2.34 0.27-4.20 IU/mL Specimen Blood BRONCHOSCOPY LAB PROCEDURE (04/22/2016 10:33 AM) William Avila MD 04/22/2016 10:33 AM Bronchoscopy Procedure Note Procedure Date: 04/22/2016 Procedure:Flexible bronchoscopy Location:Bronch Lab B Pre-Operative Diagnosis:Cystic fibrosis exacerbation Indications:Obtain respiratory cultures, instill Yung Attending/Staff: William Reno Fellow:Sharif Subramanian Assistants:Edinson Grady RRT and Kemal Bravo RRT Consent:The risks, benefits, indications, potential complications and alternatives were explained to the patient and informed consent obtained on 04/22/16 Anesthesia:Topical anesthesia with lidocaine:400 mg, Versed 4 mg iv and Fentanyl 150 mcg iv Other Medications/fluids:Normal Saline 500 cc, Dornase 5 mg Description of Procedure: After obtaining consent for bronchoscopy, the iv on the left hand was acccessed. The patient was taken from the bronchoscopy prep area to Bronch Suite B.Procedural timeout was performed with confirmation of patient identity and procedure to be performed. Hemodynamic monitoring and continuous pulse oximetry was initiated. Topical anesthesia of the nasopharynx was performed. The patient was then placed supine on the table and supplemental oxygen was provided.After initiation of conscious sedation the Olympus P180 was passed transorally.The posterior pharynx was examined and was normal.The true vocal cords appeared normal and moved normally.The trachea was midline and was normal. The main juvenal was sharp.The right mainstem bronchus was normal. RB1-10 were normal.Left mainstem bronchus was normal.LB 1-10 were normal. There were copious secretions which were thick, white and purulent mostly emanating from the RUL.The mucosa was friable. - Following the airway examination, we obtained a BAL from the RB 1 segment with instillation of 60 cc X 2, with return of nearly 30 cc of thick, purulent secretions. Following the BAL, we instilled 5 mg of Dornase into the right upper lobe apical segment following which there was return of bloody secretions which were suctioned out. No active re-pooling was noted after suctioning Procedures Performed: Bronchoalveolar Lavage:RB1 - 2 x 60 cc aliquots Dornase instillation 5 mg into the RB 1 segment Findings: 1) Thick purulent secretions obtained from the right upper lobe segment Postoperative Diagnosis:As noted above Complications:None.The patient tolerated the procedure. Blood loss was minimal. The patient was transferred to inpatient unit in stable hemodynamic condition after procedure. Plan:Follow-up of cultures by primary team Teaching Statement: William Vega was present for the entire procedure. Sharif Liu Pulmonary & Critical Care Fellow Pager - [phone] [facility] Teaching Statement I have interviewed and examined the patient and confirm the pertinent findings.I have discussed the case with the resident/fellow and agree with the findings and plan as documented. I was present during the entire procedure. William Reno MD HISTOPLASMA ANTIGEN, BAL FLUID (04/22/2016 8:16 AM) Component Value Range Histoplasma Ag, BAL None Detected None Detected Specimen Bronchial Specimen Narrative Reference interval:None Detected Results reported as ng/mL in 0.4-19 ng/mL range Results above the limit of detection but below 0.4 ng/mL are reported as "Positive, Below the Limit of Quantification" Results above 19 ng/mL are reported as "Positive, Above the Limit of Quantification" This test was developed and its performance characteristics determined by [facility].It has not been cleared or approved by the FDA, however, FDA clearance or approval is not currentlyrequired for clinical use.The results are not intended to be used as the sole means for clinical diagnosis or patient management decisions. NOCARDIA CULTURE (04/22/2016 8:16 AM) Component Value Range Nocardia Culture Growth No nocardia isolated Specimen Culture - Bronchoaveolar lavage QUANTITATIVE AEROBIC CULTURE (04/22/2016 8:16 AM) Component Value Range Quantitative Aerobic Growth 886978 CFU/mL Staphylococcus aureus(A)Comment: D zone test for inducible clindamycin resistance was performed (Positive). Oxacillin-resistant staphylococci are resistant to all currently available B- lactam antibiotics with the exception of newer cephalosporins with anti-MRSA activity. Rifampin should not be used alone for antimicrobial therapy Quantitative Aerobic Growth 443144 CFU/mL Mixed Martha (Oral)(A) Stain Many Gram Positive Cocci Stain Many PMN's Stain Cytospun preparation Specimen Culture - Bronchoaveolar lavage Narrative Identification performed by MALDI-TOF mass spectrometry (MS).The performance characteristics of MALDI-TOF MS were determined by the [facility].It has not been cleared orApproved by the FDA. The FDA has determined that such clearance or approval is not necessary.This test is for clinical purposes. It should not be regarded as investigational or for research.The laboratory is certified under the Clinical Laboratory Improvement Amendments of 1988 (CLIA) as qualified to perform high complexity clinical laboratory testing. Organism Antibiotic Method Susceptibility Staphylococcus aureus CLINDAMYCIN Resistant Staphylococcus aureus DOXYCYCLINE 1: Susceptible Staphylococcus aureus ERYTHROMYCIN >=8: Resistant Staphylococcus aureus GENTAMICIN <=0.5: Susceptible Staphylococcus aureus LINEZOLID 2: Susceptible Staphylococcus aureus OXACILLIN >=4: Resistant Staphylococcus aureus RIFAMPIN <=0.5: Susceptible Staphylococcus aureus TETRACYCLINE <=1: Susceptible Staphylococcus aureus TRIMETHOPRIM/SULFA <=0.5: Susceptible Staphylococcus aureus VANCOMYCIN 1: Susceptible FUNGAL CULTURE (INCLUDES DIRECT STAIN) (04/22/2016 8:16 AM) Component Value Range Fungal Culture Naila albicans(A) Fungal Culture Aspergillus fumigatus(A)Comment: Fungal Culture Naila glabrata(A) Calcofluor White Stain No yeast or fungal elements observed Specimen Culture - Bronchoaveolar lavage BRONCHOALVEOLAR LAVAGE CELL COUNT AND DIFF (04/22/2016 8:15 AM) Component Value Range Clarity. Bronchoalveolar Lavage Turbid(A) Clear Color, Bronchoalveolar Lavage Yellow None, Yellow, Pale Yellow Total Nucleated Count, Bronchoalveolar Lavage 29879 /MM3 Neutrophils, Bronchoalveolar Lavage 58563 /MM3 Lymphocytes, Bronchoalveolar Lavage 507 /MM3 Macrophages, Bronchoalveolar Lavage 1521 /MM3 Eosinophils, Bronchoalveolar Lavage 507 /MM3 % Neutrophils, Bronchoalveolar Lavage 85.0 % % Lymphocytes, Bronchoalveolar Lavage 3.0 % % Macrophages, Bronchoalveolar Lavage 9.0 % % Eosinophils, Bronchoalveolar Lavage 3.0 % Specimen Bronchial Specimen ASPERGILLUS GALACTOMANNAN ANTIGEN - BAL FLUID (04/22/2016 8:15 AM) Component Value Range Aspergillus Ag, BAL <0.500Comment: <0.5 index ADDITIONAL INFORMATION This is a qualitative test and the resulted index value is not indicative of disease severity.Serial testing is recommended for patients at high risk for invasive aspergillosis. Specimen Bronchial Specimen Narrative Test Performed by: [place] [address] [employer] Supervisor: Scotty Oates II, M.D., Ph.D. GAMMA GLUTAMYLTRANSPEPTIDASE (04/17/2016 10:11 AM) Component Value Range GGT 78(H) 5-36 U/L Specimen Blood ASPARTATE AMINOTRANSFERASE (04/17/2016 10:11 AM) Component Value Range AST 41(H)Comment: 0-32 U/L Adult reference ranges updated on 03/07/13 at 830am Specimen Blood ALKALINE PHOSPHATASE (04/17/2016 10:11 AM) Component Value Range ALP 156(H) 35-104 U/L Specimen Blood ALANINE AMINOTRANSFERASE (04/17/2016 10:11 AM) Component Value Range ALT 30Comment: 0-33 U/L The upper limit of normal for alanine aminotransferase (ALT) reference ranges for adults is controversial with some authorities recommending limit as low as 30 U/L for males and 19 U/L for females. Th ere is increased incidence of subclinical liver disease (e.g., early steatohepatitis) in patients with ALT values in the range of 31-41 U/L for males and 20-33 U/L for females. ALT values should alway s be interpreted in conjunction with clinical history, physical examination findings, and, if applicable, data from other diagnostic tests. Specimen Blood AMMONIA, PLASMA (04/17/2016 10:11 AM) Component Value Range Plasma Ammonia 56 16-60 mol/L Specimen Blood URINE MICROSCOPIC (04/16/2016 11:00 PM) Component Value Range White Blood Cells, Urine 5 0-5 /HPF Red Blood Cells, Urine >180(H) 0-2 /HPF Squamous Epithelial Cells, Urine 147(H) <=10 /LPF Specimen Urine URINALYSIS (04/16/2016 11:00 PM) Component Value Range Color, Urine Yellow Straw, Pale Yellow, Yellow, Clear, None Clarity, Urine Slightly Cloudy(A) Clear pH, Urine 6.0 <9.0 Glucose, Urine Negative Negative Blood, Urine 3+(A) Negative Ketones, Urine Negative Negative Protein, Urine Negative Negative Urobilinogen, Urine Normal Normal Bilirubin, Urine Negative Negative Leukocyte Esterase, Urine Negative Negative Nitrite, Urine Negative Negative Spec Elba, Urine 1.015 1.000-1.030 Specimen Urine LACOSAMIDE DRUG LEVEL (04/16/2016 5:05 AM)Only the most recent of2 resultswithin the time period is included. Component Value Range Lacosamide Drug Level 29.7(H)Comment: 5.0-10.0 ug/mL INTERPRETIVE INFORMATION: Lacosamide, Serum or Plasma Therapeutic Range: Not well established. Suggested range 5.0 - 10.0 ug/mL Dose-related range (values at doses of 200-600 mg/day): 2.5 - 18.0 ug/mL Toxic: Not well established. Adverse effects may include dizziness, fatigue, nausea, vomiting, blurred vision and tremor. Test developed and characteristics determined by [facility]. See Compliance Statement B: [facility] Performed by [facility], [address] [place] [id number] www.[email or web address], Juliano Odell MD, Lab. Director Specimen Blood Narrative Source: BLOOD Client Accession number: [id number] KEPPRA (LEVETIRACETAM) DRUG LEVEL (04/15/2016 4:06 AM) Component Value Range Levetiracetam (Keppra) Drug Level 38.7(H) 5.0-30.0 g/mL Specimen Blood ADULT CF/BRONCHIECTASIS RESPIRATORY CULTURE (04/14/2016 11:34 PM) Component Value Range Respiratory Culture Many Staphylococcus aureus(A)Comment: Oxacillin-resistant staphylococci are resistant to all currently available B- lactam antibiotics with the exception of newer cephalosporins with anti-MRSA activity. Rifampin should not be used alone for antimicrobial therapy Respiratory Culture Rare - 1 colony Aspergillus fumigatus(A) Respiratory Culture Few Mixed Martha (Oral)(A) Specimen Culture - Sputum, Cystic Fibrosis Narrative Identification performed by MALDI-TOF mass spectrometry (MS).The performance characteristics of MALDI-TOF MS were determined by the [facility].It has not been cleared orApproved by the FDA. The FDA has determined that such clearance or approval is not necessary.This test is for clinical purposes. It should not be regarded as investigational or for research.The laboratory is certified under the Clinical Laboratory Improvement Amendments of 1988 (CLIA) as qualified to perform high complexity clinical laboratory testing. Organism Antibiotic Method Susceptibility Staphylococcus aureus CLINDAMYCIN Resistant Staphylococcus aureus DOXYCYCLINE <=0.5: Susceptible Staphylococcus aureus ERYTHROMYCIN 4: Resistant Staphylococcus aureus GENTAMICIN <=0.5: Susceptible Staphylococcus aureus LINEZOLID 4: Susceptible Staphylococcus aureus OXACILLIN >=4: Resistant Staphylococcus aureus RIFAMPIN <=0.5: Susceptible Staphylococcus aureus TETRACYCLINE <=1: Susceptible Staphylococcus aureus TRIMETHOPRIM/SULFA <=0.5: Susceptible Staphylococcus aureus VANCOMYCIN <=0.5: Susceptible LIVER PANEL (04/14/2016 2:16 PM) Component Value Range Bilirubin Total 0.7 <=1.2 mg/dL AST 89(H)Comment: 0-32 U/L Adult reference ranges updated on 03/07/13 at 830am ALT 44(H)Comment: 0-33 U/L The upper limit of normal for alanine aminotransferase (ALT) reference ranges for adults is controversial with some authorities recommending limit as low as 30 U/L for males and 19 U/L for females. Th ere is increased incidence of subclinical liver disease (e.g., early steatohepatitis) in patients with ALT values in the range of 31-41 U/L for males and 20-33 U/L for females. ALT values should alway s be interpreted in conjunction with clinical history, physical examination findings, and, if applicable, data from other diagnostic tests. ALP 168(H) 35-104 U/L GGT 93(H) 5-36 U/L Albumin 2.5(L) 3.4-4.8 g/dL Total Protein 6.1 6.0-8.0 g/dL Specimen Blood HCG - , SERUM, QUANTITATIVE (04/14/2016 2:16 PM)Only the most recent of2 resultswithin the time period is included. Component Value Range Screen, Quantitative, Blood <2Comment: mIU/mL This assay recognizes the intact HCG "holo-hormone" produced in but may not recognize other forms of HCG (e.g., "nicked HCG") produced in other conditions such as tumors of the germs cells, ovaries, bladder, pancreas, stomach, lungs, and liver. QUANTITATIVE HCG Weeks of gestation Expected range mIU/mL 3 weeks5 - 72 4 weeks 10 - 708 5 siajf541 - 8, 245 6 ubhnr617 - 32, 177 7 weeks 4,059 - 153, 767 8 weeks31,366 - 149, 094 9 weeks59,109 - 135, 901 10 weeks 44,186 - 170, 409 12 weeks 27,107 - 201, 165 14 weeks 24,302 - 93,646 15 weeks 12,540 - 69,747 16 weeks 8,904 - 55, 332 17 weeks 8,240 - 51, 793 18 weeks 9,649 - 55, 271 Non- females:< 3 mIU/mL Males: < 2 mIU/mL Healthy non- rory-menopausal and post-menopausal females may have HCG values up to 8 mIU/mL.Heterophile antibodies present in the serum of some patients may cause a false positive result in this assay. Specimen Blood LIPASE (04/14/2016 2:16 PM) Component Value Range Lipase 4(L) 13-60 U/L Specimen Blood TOBRAMYCIN DRUG LEVEL (03/21/2016 5:36 PM)Only the most recent of4 resultswithin the time period is included. Component Value Range Tobramycin Drug Level 4.0 1.0-8.0 g/mL Specimen Blood MICROSCOPIC URINALYSIS (03/14/2016 6:50 AM) Component Value Range White Blood Cells, Urine 10(H) 0-5 /HPF Red Blood Cells, Urine >180(H) 0-2 /HPF Squamous Epithelial Cells, Urine 211(H) <=10 /LPF Mucous-Urine Rare None, Rare Specimen Urine URINALYSIS WITH REFLEX CULTURE (03/14/2016 6:50 AM) Component Value Range Color, Urine Yellow Straw, Pale Yellow, Yellow, Clear, None Clarity, Urine Slightly Cloudy(A) Clear pH, Urine 6.0 <9.0 Spec Elba, Urine 1.030(H) 1.000-1.030 Glucose, Urine Negative Negative Blood, Urine 3+(A) Negative Ketones, Urine Negative Negative Protein, Urine Negative Negative Urobilinogen, Urine Normal Normal Bilirubin, Urine Negative Negative Leukocyte Esterase, Urine Trace(A) Negative Nitrite, Urine Negative Negative Specimen Urine URINALYSIS WITH REFLEXED CULTURE AND MICROSCOPIC EXAM (03/14/2016 6:50 AM) Specimen Culture - Urine, Midstream clean catch Narrative The following orders were created for panel order URINALYSIS WITH REFLEXED CULTURE AND MICROSCOPIC EXAM. Procedure Abnormality Status --------- ------ URINALYSIS WITH REFLEX C...[[id number]]AbnormalFinal result MICROSCOPIC URINALYSIS[[id number]] Abnormal Final result URINE CULTURE, REFLEXED[[id number]]Normal Final result Please view results for these tests on the individual orders. URINE CULTURE, REFLEXED (03/14/2016 6:50 AM) Component Value Range Quantitative Culture No growth at 04/999 dilution Specimen Culture - Urine, Midstream clean catch EXTRA PST TUBE (03/13/2016 6:09 AM) Component Value Range Extra PST Tube Store Specimen Blood TROPONIN T (03/12/2016 3:24 PM) Component Value Range Troponin-T <0.03 <=0.10 ng/mL Specimen Blood
--- OUTSIDE RECORDS SUMMARY | 2016-05-29 05:27 | XMS REPORT | CCD ---
:1995 Author Name RIK ZEPEDA Address [address] Unavailable [place], [place] [id number] Care Team Providers Name Role Phone TAISHA FISHER Attending Physician Unavailable Vital Signs Unknown or Not Available. Allergies Allergy Code Allergy Type Reaction Status VANCOMYCIN 0 Drug allergy Active Procedures Unknown or Not Available. History of Immunizations Unknown or Not Available. Problems Problem Code Start Date Resolved Date Status COUGH 24708221 01/13/2012 Active CYSTIC FIBROSIS [id number] 01/13/2012 Active Results Unknown or Not Available. Active Medications Unknown or Not Available. Medications Administered During Visit Unknown or Not Available. Encounters Encounter Diagnosis Diagnosis Code Start Date Syncope and collapse R55 11/28/2015 Social History Smoking Status Code Start Date End Date Never smoker [id number] Patient Decision Aids Unknown or Not Available. Discharge Instructions You were admitted to [facility] on 11/28/2015 21:22 with a principal diagnosis of Syncope and collapse You were discharged from [facility] on 11/28/2015 21:22 Should you have any questions prior to discharge, please contact a member of your healthcare team. If you have left the hospital and have any questions, please contact your primary care physician. Chief Complaint and Reason For Visit Unknown or Not Available. Function Status Unknown or Not Available. Plan of Care Unknown or Not Available. Referral/Transition of Care Unknown or Not Available.
[2016-05-29 05:30] VITALS: BP 120/93
== END 2016-05-29 05:25 | disposition home or self-care (01) ==
LOC: ER 03:13
DX: F41.9 Anxiety disorder, unspecified (principal); E03.9 Hypothyroidism, unspecified; R56.9 Unspecified convulsions

== ENCOUNTER 2016-05-29 09:30 | Emergency (ER) | payer BC ==
[2016-05-29 09:30] VITALS: BP 120/93
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
--- NOTE | 2016-05-29 10:47 | ERNOTE ---
Dyspnea - Date Date of Service: 05/29/16 - General Presenting Symptoms: other - PT C/O CHRONIC CHEST WALL PAIN,HERE AT 0330 TODAY ALSO, AND N & V. NO TRAUMA Time Seen by Provider: 05/29/16 09:38 Source: patient Exam Limitations: other - SUSPECT THAT THE PT IS NOT COMPLETELY RELIABLE HISTORIAN. - Immun/Allergies/Home Medications Immunizations: IMMUNIZATION HX Immunizations Up to Date Yes History of Influenza Vaccine Yes Hx Pneumococcal Vaccination Yes Allergies/Adverse Reactions: Allergies NSAIDS (Non-Steroidal Anti-Inflamma Allergy (Verified 05/29/16 10:05) Hives ibuprofen Adverse Reaction (Verified 05/29/16 10:05) Hives, vomiting ketorolac tromethamine [From Toradol] Adverse Reaction (Verified 05/29/16 10:05) Hives sumatriptan [From Imitrex] Adverse Reaction (Verified 05/29/16 10:05) Hives sumatriptan succinate [From Imitrex] Adverse Reaction (Verified 05/29/16 10:05) Hives tramadol Adverse Reaction (Verified 05/29/16 10:05) Hives vancomycin Adverse Reaction (Verified 05/29/16 10:05) Other Red jada syndrome Home Medications: HOME MEDICATIONS Albuterol Sulfate [Albuterol Sulfate Hfa] 1 puff IH Q4H PRN 05/30/13 [Last Taken 01/13/14] Ferrous Sulfate 325 mg PO BID 05/30/13 [Last Taken 07/21/14 09:00] Fluticasone Propionate [Flonase] 1 spray NS BID 05/30/13 [Last Taken 07/21/14 09 :00] Multivitamins [Multivitamin Arnie] 2 cap PO DAILY 05/30/13 [Last Taken 09:00] Albuterol Sulfate 2.5 mg IH QID PRN 06/22/13 [Last Taken 01/13/14] Gabapentin 600 mg PO TID 06/22/13 [Last Taken 07/21/14 09:00] Levetiracetam [Keppra] 1,500 mg PO BID 06/22/13 [Last Taken 07/21/14 09:00] Cholecalciferol (Vitamin D3) [Vitamin D3] 50,000 unit PO WE 08/10/13 [Last Taken 07/18/14] Dornase Delmar [Pulmozyme] 2.5 mg IH DAILY PRN 08/10/13 [Last Taken 07/21/14 09:00 ] Levothyroxine Sodium [Synthroid] 50 mcg PO DAILY 08/10/13 [Last Taken 07/21/14 09:00] Aztreonam Lysine [Cayston] 75 mg IH TID 03/01/14 [Last Taken Unknown] Colistin (Colistimethate Na) [Colistimethate] 3 ml IH BID 03/01/14 [Last Taken 07/21/14 09:00] Lipase/Protease/Amylase [Zenpep Dr 20,000 Units Capsule] 5 each PO AC 03/01/14 [ Last Taken Unknown] Lacosamide [Vimpat] 200 mg PO BID 07/21/14 [Last Taken 07/14/14 09:00] Azithromycin [Zithromax] 250 mg PO MOWEFR 07/23/14 [Last Taken Unknown] Sodium Chloride For Inhalation [Nebusal] 4 ml IH HS 07/23/14 [Last Taken Unknown ] Omeprazole [Prilosec] 40 mg PO DAILY 04/25/15 [Last Taken Unknown] Buspirone HCl 10 mg PO DAILY 02/09/16 [Last Taken Unknown] Dabigatran Etexilate Mesylate [Pradaxa] 150 mg PO BID 02/09/16 [Last Taken Unknown] Doxepin HCl [Sinequan] 10 mg PO BID 02/09/16 [Last Taken Unknown] Clonidine HCl [Clonidine HCl ER] 0.1 mg PO HS 02/24/16 [Last Taken Unknown] Bisacodyl [Dulcolax Suppository] 10 mg RC DAILY PRN #10 supp.rect 04/04/16 [ Last Taken Unknown] Zolpidem Tartrate 05/13/16 [Last Taken Unknown] Ondansetron [Zofran Odt] 8 mg PO Q8H PRN #12 tab 05/14/16 [Last Taken Unknown] Promethazine HCl [Phenergan Suppository] 25 mg RC BID PRN #3 supp.rect 05/29/16 [Last Taken Unknown] - History of Present Illness Narrative: PT STATES THAT EVER SINCE SHE WAS IN [facility] 2 WEEKS, SHE WAS JUST DISCHARGED 3 DAYS AGO, THAT SHE HAS HAD CHEST WALL PAIN. STATES THAT THIS WAS ADDRESSED IN [place] AND THAT SHE WAS ON DILAUDID THERE BUT THEY DID NOT DISCHARGE HER ON ANY PAIN MEDS AND THAT SHE THINKS SHE NEEDS MORE DILAUDID. SHE WAS HERE IN THIS ER AT 0330- 0530 THIS A.M. FOR SAME THING. SHE DENIES ANY HX OF TRAUMA OR FEVER OR NEW COUGH OR RESPIRATORY DISTRESS. SHE ALSO GIVES A HISTORY OF VOMITING INTERMITTENTLY FOR WHICH SHE SAYS SHE USES ZOFRAN ODT AND OCC. PHENERGAN P.O. BUT THAT SOMETIMES SHE CAN NOT KEEP THE PHENERGAN DOWN. SHE CLAIMS SHE VOMITED ANYWHERE BETWEEN 2 TIMES AND 6 TIMES ( HX VARIES ON EACH VISIT) . NO FEVER OR COUGH. NO DIARRHEA. NO OTHER NEW COMPLAINTS. SHE SAYS SINCE [facility] "ADDRESSED" HER ISSUES SHE DOES NOT SEE THE PROBLEM WITH US GIVING HER DILAUDID. Severity: moderate Treatment [employer] SEWER: none Frequency of episodes: Reports: occassional episodes, chronic episodes Modifying Factors - (Improves): Reports: nothing - SAYS SHE IS NOT DOING ANYTHING FOR HER CHEST PAIN AT HOME Modifying Factors (Worsens): Reports: other - WORSE WITH PALPATION TO HER CHEST OR MOVEMENT OF TORSO Associated Symptoms-Dyspnea: Denies: fever/chills, palpitations, cough, wheezing , leg/calf pain, muscle spasms Prior Treatment: Reports: recently seen, treated by physician, recently hospitalized, currently on antibiotics Review of Systems - Review of Systems Constitutional: Present: See HPI EYE: Present: no symptoms reported ENT: Present: no symptoms reported Respiratory: Present: cough - SHE HAS OCC COUGH BUT HAS BEEN DOING WELL SINCE IN [place] Cardiology: Present: chest pain - ANTERIOR XYPHOID AND LEFT LATERAL LOWER CHEST WALL TENDERNESSS Gastrointestinal/Abdominal: Present: no symptoms reported Genitourinary: Present: no symptoms reported Musculoskeletal: Present: other - CHEST WALL TENDERNESS. Skin: Present: no symptoms reported Neurological: Present: no symptoms reported Endocrine: Present: no symptoms reported Hematologic/Lymphatic: Present: no symptoms reported Psych: Present: no symptoms reported - Patient's Past Medical History Patient History - Medical: Anxiety, Hypothyroidism, Migraines, Seizures Patient History - Cardiac/Respiratory: Pneumonia, Other - CYSTIC FIBROSIS Patient History - Cancer: No Hx of Cancer Patient History - Surgical Procedures: Cholecystectomy, D & C, T & A, Other Patient History - Other: None LMP (Calendar): 06/25/15 - Family History Father Family History - Medical: Rheumatoid Arthritis, Other Family History - Cardiac/Respiratory: Other - Social History Living Situations: home Abuse History: No History of abuse Psych History: Psychiatric Hx Does anyone smoke in the home?: No Alcohol Use: occasionally Drug Use: none - Immunizations Immunizations Up to Date: Yes Hx Pneumococcal Vaccination: Yes History of Influenza Vaccine: Yes Physical Exam - Physical Exam General Appearance: Present: wd/wn, alert, no apparent distress Ears, Nose, Throat: Present: normal ENT inspection, normal pharynx, other - SHE HAS GOOD MOIST MUCOUS MEMBRANES AND NO SIGN OF DEHYDRATION. . Absent: pharyngeal erythema, tonsillar swelling Neck: Present: normal inspection, nontender. Absent: lymphadenopathy (R), lymphadenopathy (L) Respiratory: Present: no respiratory distress, normal breath sounds, no accessory muscle use, chest nontender, lungs clear, other - CLEAR TO A & P WITH NO SIGNS OF DISTRESS AND SAO2 - 95% ON R.A. Cardiovascular/Chest: Present: regular rate, rhythm, no murmur, chest tenderness - PT WITH MILD CHEST WALL TENDERNESS ON EXAM NO GUARDING OR WITHDRAWAL. NO CREPITUS OR INSTABILITY. Gastrointestinal/Abdominal: Present: normal bowel sounds, nontender, nondistended, soft, no organomegaly Back Exam: Present: normal inspection, normal range of motion Neurological Exam: Present: alert, oriented, normal mood/affect, no motor/ sensory deficits Skin Exam: Present: normal color, warm/dry, other - SHE IS SL PALE BUT HAS NO SIGN OF POOR SKIN TURGOR ( TENTING). . Absent: skin rash ED Progress - Vital Signs Vital Signs: Vital Signs 05/29/16 05/29/16 05/29/16 05:25 05:29 09:50 Temperature 35.9 C L 35.9 C L Pulse Rate 116 H Respiratory 16 Rate Blood Pressure 120/93 120/93 O2 Sat by Pulse 96 Oximetry - Progress/Reassessment Chief Complaint: Dyspnea Plan - Plan Plan: I EXPLAINED TO HER AT LENGTH THAT THERE IS NO INDICATION CURRENTLY FOR HER TO HAVE ANY OPIATES AND I WOULD BE NEGLIGENT IN GIVING HER ANY NOW. Departure Clinical Impression: Chest wall discomfort Vomiting Qualifiers: Vomiting type: unspecified Vomiting Intractability: unspecified Nausea presence : without nausea Qualified Code(s): R11.11 - Vomiting without nausea - Departure Disposition: Home Follow Up Needed Condition: Good Instructions: Chest Wall Pain, [id number], Nausea, Adult Additional Instructions: LIGHT DIET WITH FREQUENT SMALL AMOUNTS OF LIQUIDS TO HELP SETTLE YOUR STOMACH. USE YOUR ZOFRAN DIRECTED. IF UNABLE TO KEEP DOWN YOUR SUPPLEMENTAL ORAL PHENERGAN YOU MAY TRY THE PHENERGAN SUPPOSITORIES. EXPLAINED TO YOU, OPIATES ARE NOT APPROPRIATE FOR YOUR CHEST WALL PAIN YOU MAY TRY WARM COMPRESSES FOR COMFORT AND SOME ACETOMINOPHEN, 625 MG EVERY 6 HOURS. FOLLOW UP WITH YOUR PRIMARY CARE DOCTOR IF HAVING FURTHER PROBLEMS. Prescriptions: Promethazine HCl [Phenergan Suppository] 25 mg RC BID PRN #3 supp.rect PRN Reason: Nausea And Vomiting
== END 2016-05-29 10:37 | disposition home or self-care (01) ==
LOC: ER 09:30
DX: R07.89 Other chest pain (principal); R11.11 Vomiting without nausea